=== PATIENT | female | born 1960 | race Caucasian/White ===

== ENCOUNTER 2018-09-22 17:25 | Emergency (ER) | payer BC ==
[2018-09-22 17:50] VITALS: BP 114/75
--- NOTE | 2018-09-22 17:56 | UC ---
Ear Complaint HPI - HPI Summary HPI Summary: Pt presents with c/o right ear pain X 5 days. Pt stated the right ear felt full and she attempted to "flush it out" and now has c/o right ear pain. - History of Current Complaint Chief Complaint: UCEar Stated Complaint: RIGHT EAR PAIN Time Seen by Provider: 09/22/18 17:53 Hx Obtained From: Patient ?: No Onset/Duration: Gradual Onset, Lasting Days, Still Present Severity Initially: Mild Severity Currently: Mild Pain Intensity: 5 Associated Signs/Symptoms: Positive: Hearing Loss - Allergies/Home Medications Allergies/Adverse Reactions: Allergies Allergy/AdvReac Type Severity Reaction Status Date / Time No Known Allergies Allergy Verified 09/22/18 17:41 Home Medications: Home Medications Atorvastatin* [Lipitor 10 MG*] 10 mg PO DAILY 09/22/18 [History Confirmed ] Metoprolol Tartrate TAB* [Lopressor TAB*] 25 mg PO DAILY 09/22/18 [History Confirmed 09/22/18] PMH/Surg Hx/FS Hx/Imm Hx Previously Healthy: Yes Endocrine History: Thyroid Disease Cardiovascular History: Hypertension - Surgical History Surgical History: Yes Surgery Procedure, Year, and Place: 4 C-SECT. APPY. OOPHERECTOMY B/L - Family History Known Family History: Positive: Cardiac Disease - Social History Occupation: Employed Full-time Lives: With Family Alcohol Use: Rare Substance Use Type: None Smoking Status (MU): Former Smoker Have You Smoked in the Last Year: No When Did the Patient Quit Smoking/Using Tobacco: 1997 - Immunization History Vaccination Up to Date: Yes Review of Systems All Other Systems Reviewed And Are Negative: Yes Constitutional: Positive: Negative Skin: Positive: Negative Eyes: Positive: Negative ENT: Positive: Ear Ache - right Respiratory: Positive: Negative Cardiovascular: Positive: Negative Gastrointestinal: Positive: Negative Genitourinary: Positive: Negative Motor: Positive: Negative Neurovascular: Positive: Negative Musculoskeletal: Positive: Negative Neurological: Positive: Negative Psychological: Positive: Negative Is Patient Immunocompromised?: No Physical Exam Triage Information Reviewed: Yes Completion Of Physical Exam Limited Due To: Extremis Vital Signs: Initial Vital Signs Temp 97.9 F 09/22/18 17:43 Pulse 67 09/22/18 17:43 Resp 16 09/22/18 17:43 BP 114/75 09/22/18 17:43 Pulse Ox 97 09/22/18 17:43 Vital Signs Reviewed: Yes Eye Exam: Normal ENT: Positive: Other - cerumen in right ear canal with slight erythema and creamy white discharge Dental Exam: Normal Neck exam: Normal Respiratory Exam: Normal Musculoskeletal Exam: Normal Neurological Exam: Normal Psychological Exam: Normal Skin Exam: Normal Ear Complaint Course/Dx - Differential Dx/Diagnosis Differential Diagnosis/HQI/PQRI: Cerumen Impaction, Otitis Externa Provider Diagnosis: Cerumen debris on tympanic membrane of right ear, Otitis externa of right ear Discharge - Sign-Out/Discharge Documenting (check all that apply): Patient Departure All imaging exams completed and their final reports reviewed: No Studies - Discharge Plan Condition: Stable Disposition: HOME Prescriptions: Ciproflox/Dexameth OTIC.SUSP* [Ciprodex OTIC.SUSP*] 2 drop RIGHT EAR Q12H 7 Days #1 btl Patient Education Materials: Otitis Externa (ED), Cerumen Impaction (ED) Referrals: Nandini Queen MD [Primary Care Provider] - If Needed - Billing Disposition and Condition Condition: STABLE Disposition: Home - Attestation Statements Provider Attestation: Per institutional requirements, I have reviewed the chart, however, I was not consulted specifically or made aware of this patient by the midlevel provider. I did not personally evaluate, interact with , or disposition this patient.
== END 2018-09-22 18:33 | disposition home or self-care (01) ==
LOC: UCCORT 17:25
DX: H61.21 Impacted cerumen, right ear (principal); H60.91 Unspecified otitis externa, right ear; Z87.891 Personal history of nicotine dependence
CPT/HCPCS: 69210; 99203; G0463